=== PATIENT | female | born 1975 | race Caucasian/White ===

== ENCOUNTER 2021-03-19 15:35 | Emergency (ER) | payer BC, SELFPAY ==
[2021-03-19 15:58] VITALS: BP 124/81; PULSE 86; RESP 18; TEMP 36.6; O2SAT 99; BMI 37.0
--- NOTE | 2021-03-19 16:16 | HMH.EDUTC ---
[facility] [place] Clinical Impression: Fibromyalgia muscle pain Disposition: Home, Self-Care Condition on Discharge: Good Instructions: Fibromyalgia (Alternative Therapy), DI for Chronic Pain -- Adult, Ketorolac Additional Instructions: Follow up with your Family Doctor if pain continues Return if needed Straight to ER if any life threatening symptoms Referrals: Trip Angeles [Primary Care Provider] - As needed Medical Decision Making - Giles Inquiry Pt receiving controlled substance: No Giles was queried for this patient: No Vital Signs: 03/19/21 15:58 03/19/21 16:38 Temperature 98 F 98 F Temperature Source Oral Pulse Rate 86 Pulse Rate [Left] 86 Respiratory Rate 18 18 Blood Pressure 124/87 Blood Pressure [Right Arm] 124/81 Blood Pressure Mean [Right Arm] 95 02 Sat by Pulse Oximetry 99 Orders (Tests/Meds): ED MEDICATIONS Discontinued Medications Generic Name Dose Route Start Last Admin Trade Name Freq PRN Reason Stop Dose Admin Ketorolac Tromethamine 60 mg 03/19/21 16:21 03/19/21 16:27 Ketorolac 60mg/2ml Vial IM 03/19/21 16:22 60 mg ONCE ONE Administration Medical Decision Narrative: Patient reports that she has taken Toradol in the past without complications or reactions and advised she has not taken any ibuprofen today [facility] [place] - General Stated complaint: pain need medication Time Seen by Provider: 03/19/21 16:16 Mode of Arrival: Ambulatory Source of Information: Patient Limitations: No Limitations Description of Symptoms (Recalled from Triage Doc. by RN): pt states she is having a fibromyalgia flare up and is just miserable in pain. pt states when this happens she usually gets a torodol injection. HEENT Symptoms (Recalled from RN notes): No Resp Symptoms (Recalled from RN notes): No Skin Symptoms (Recalled from RN notes): No MS Symptoms (Recalled from RN notes): No Functional Status (Recalled from RN notes): pain - History of Present Illness Provider Complaint: Patient states that every so often she has a Fibro flare up States that when she has a flare up sometimes she has to come in and get a shot of Toradol States that she called her PCP and was unable to get in so they recommended that she come to the [facility] and get it States that she is having pain all over her body like she has when she has flare - Related Data Allergies Allergy/AdvReac Type Severity Reaction Status Date / Time acetaminophen [From Percocet] Allergy Verified 03/19/21 16:07 oxycodone [From Percocet] Allergy Verified 03/19/21 16:07 - Worker's Comp Is this a Worker's Comp case?: No H History - Hepatitis A Screen Drug use history?: No High risk sexual behaviors?: No History of sexually transmitted infection?: No Currently employed?: No Childcare worker?: No Do you have indoor plumbing?: Yes Do you have electricity?: Yes Attestation statement:: This patient has been screened for Hepatitis A risk factors. I have reviewed the patient's past medical history: Yes ROS Obtained: Yes All systems reviewed & no additional complaints, Yes Systems reviewed as appropriate & no additional complaints - Constitutional Constitutional: Reports system reviewed and no additional complaints, except as docu, Reports body ache (and pain all over due to hx of fibromyalgia), Denies chills, Denies fever(s), Denies headache(s) - Eyes Eyes: Reports system reviewed and no additional complaints, except as docu - ENT Ears, Nose, Mouth, and Throat: Reports system reviewed and no additional complaints, except as docu Physical Exam - General General appearance: alert, in no apparent distress - Respiratory Respiratory exam: Present: normal lung sounds bilaterally. Absent: respiratory distress - Cardiovascular Cardiovascular exam: Present: regular rate, normal rhythm. Absent: JVD - Abdominal Exam Abdominal exam: Present: soft, normal bowel sounds. Absent: distention, tenderness, guarding
[2021-03-19 16:38] VITALS: BP 124/87; PULSE 86; RESP 18; TEMP 36.6
== END 2021-03-19 16:45 | disposition home or self-care (01) ==
PROVIDERS: Emergency Provider Nurse Practitioner; PCP Family Medicine
DX: M79.7 Fibromyalgia (principal); Z88.5 Allergy status to narcotic agent
CPT/HCPCS: 96372; 99202; G0463

== ENCOUNTER → 2021-06-13 09:50 | Outpatient (CLI) | payer BC, SELFPAY ==
[2021-06-13 10:38] LABS: Coronavirus 19, PCR Not Detected (NotDetected); Influenza A, PCR Not Detected (NotDetected); Influenza B, PCR Not Detected (NotDetected)
== END ==
PROVIDERS: Visit Provider Nurse Practitioner
DX: Z20.822 Contact with and (suspected) exposure to COVID-19 (principal)
CPT/HCPCS: C9803; U0003; U0005